=== PATIENT | male | born 1980 | race Caucasian/White ===

== ENCOUNTER 2016-09-04 12:22 | Emergency (ER) | payer OTHER ==
--- NOTE | ~2016-09-04 | EKG ---
PATIENT: ALONZO WATTS UNIT #: [id number] Ventricular Rate: 80 BPM Atrial Rate: 80 BPM P-R Interval: 138 ms QRS Duration: 94 ms Q-T Interval: 372 ms QTC Calculation(Bezet): 429 ms P [place]: 51 degrees Calculated R [place]: 60 degrees Calculated T [place]: 29 degrees Diagnosis Line: Normal sinus rhythm Diagnosis Line: Normal ECG Diagnosis Line: No previous ECGs available Diagnosis Line: Confirmed by GATO GAYLE MD ([id number]) on 09/07/2016 Diagnosis Line: 11:11:52 PM INTERPRETING MD: IRWIN DWYER
[2016-09-04] MEDS ORDERED: EFFEXOR75 M1 PO (12:28)
[2016-09-04] MEDS ORDERED: SUBUTEX PO (12:29)
== END 2016-09-04 13:36 | disposition home or self-care (01) ==
LOC: SED 12:22
DX: F41.1 Generalized anxiety disorder (principal); F17.200 Nicotine dependence, unspecified, uncomplicated; Z79.899 Other long term (current) drug therapy
CPT/HCPCS: 93005; 99283